=== PATIENT | female | born 1995 | race Caucasian/White ===

== ENCOUNTER 2018-01-25 12:50 | Emergency (ER) | payer SELFPAY ==
[2018-01-25 13:23] VITALS: BP 151/81
--- NOTE | 2018-01-25 14:15 | UC ---
Complaint Female HPI - HPI Summary HPI Summary: Pt presents with c/o vaginal itching and discharge X "several days". Pt self reports that she may have been over the summer, was told she miscarried at [facility] but is unsure. She self reports cognitive delay. Pt also is concerned about STDs - History Of Current Complaint Chief Complaint: UCSTDScreening Stated Complaint: PERSONAL Time Seen by Provider: 01/25/18 13:32 Hx Obtained From: Patient Hx Last Menstrual Period: IRREGULAR- JUST CAME OF DEPO ?: No Onset/Duration: Sudden Onset Severity Initially: Mild Severity Currently: Moderate Pain Intensity: 7 Character: Burning Aggravating Factor(s): Nothing Alleviating Factor(s): Nothing Associated Signs And Symptoms: Positive: Vaginal Discharge - Risk Factors Ectopic Risk Factor: Negative Ovarian Torsion Risk Factor: Reproductive Age - Allergies/Home Medications Allergies/Adverse Reactions: Allergies Allergy/AdvReac Type Severity Reaction Status Date / Time No Known Allergies Allergy Verified 01/25/18 13:21 Home Medications: Home Medications Amitriptyline HCl 25 mg PO DAILY 01/25/18 [History Confirmed 01/25/18] Metformin HCl [Metformin HCl ER (Osmotic] 500 mg PO BID 01/25/18 [History Confirmed 01/25/18] OLANZapine [Zyprexa] 10 mg PO BID 01/25/18 [History Confirmed 01/25/18] Sertraline HCl [Zoloft] 25 mg PO DAILY 01/25/18 [History Confirmed 01/25/18] lamoTRIgine [Lamictal] 50 mg PO DAILY 01/25/18 [History Confirmed 01/25/18] PMH/Surg Hx/FS Hx/Imm Hx Previously Healthy: Yes - Surgical History Surgical History: Yes Surgery Procedure, Year, and Place: PILONIDAL CYST. INCISION AND DRAINEGE RIGHT ARM. APPENDECTOMY - Family History Known Family History: Positive: Cardiac Disease - Social History Occupation: Works From/At Home Lives: With Family Alcohol Use: None Substance Use Type: None Smoking Status (MU): Never Smoked Tobacco Have You Smoked in the Last Year: No Review of Systems Constitutional: Negative Skin: Negative Eyes: Negative ENT: Negative Respiratory: Negative Cardiovascular: Negative Gastrointestinal: Negative Genitourinary: Vaginal/Penile Itching Motor: Negative Neurovascular: Negative Musculoskeletal: Negative Neurological: Negative Psychological: Negative Is Patient Immunocompromised?: No All Other Systems Reviewed And Are Negative: Yes Physical Exam Triage Information Reviewed: Yes Appearance: Well-Appearing, Obese Vital Signs: Initial Vital Signs Temp 97.3 F 01/25/18 13:15 Pulse 82 01/25/18 13:15 Resp 16 01/25/18 13:15 BP 151/81 01/25/18 13:15 Pulse Ox 100 01/25/18 13:15 Vital Signs Reviewed: Yes Eye Exam: Normal ENT Exam: Normal Dental Exam: Normal Neck exam: Normal Respiratory: Positive: No respiratory distress Abdomen Description: Positive: Nontender Pelvic Exam: Positive: External Exam Normal, No Masses Musculoskeletal Exam: Normal Neurological Exam: Normal Psychological Exam: Normal Skin Exam: Normal Complaint Female Dx - Differential Dx/Diagnosis Differential Diagnosis/HQI/PQRI: Cervicitis, Sexually Transmitted Disease, Urinary Tract Infection Provider Diagnoses: vaginitis Discharge - Sign-Out/Discharge Documenting (check all that apply): Patient Departure All imaging exams completed and their final reports reviewed: No Studies - Discharge Plan Condition: Stable Disposition: HOME Patient Education Materials: Vaginitis (ED) Referrals: [facility] [Outside] - 1 Day Brenda Whiteside NP [Primary Care Provider] - - Billing Disposition and Condition Condition: STABLE Disposition: Home
== END 2018-01-25 14:27 | disposition home or self-care (01) ==
LOC: UCCORT 12:50
DX: N76.0 Acute vaginitis (principal)
CPT/HCPCS: 81003; 84702; 87480; 87491; 87510; 87591; 87661; 99212; G0463

== ENCOUNTER 2018-04-20 16:06 | Emergency (ER) | payer BC, OTHER ==
[2018-04-20 16:24] VITALS: BP 113/71
--- NOTE | 2018-04-20 17:13 | UC ---
Abdominal Pain Female HPI - HPI Summary HPI Summary: 22-year-old woman comes to clinic today with a chief complaint of right upper quadrant and epigastric abdominal pain. This started this morning. Patient reports that she feels hungry but when she drinks water she got nauseous. The worst pain is 9-10 out of 10. Pains in the epigastrium and radiates around the right upper abdomen to the right flank. Denies any fevers. She had diarrhea last night. Normal bowel movement today. No vomiting today. Pain is also worse with twisting turning. No rash. Patient's had her appendix out but still has her gallbladder. Describes the pain is sharp. Patient reports she went to the emergency department today and waited 4 hours in the waiting room and then came here. - History of Current Complaint Chief Complaint: UCAbdominalPain Stated Complaint: ABDOMINAL PAIN GOING INTO RIGHT SIDE Time Seen by Provider: 04/20/18 16:49 Hx Last Menstrual Period: 04/10/18 Pain Intensity: 9 Allergies/Adverse Reactions: Allergies Allergy/AdvReac Type Severity Reaction Status Date / Time No Known Allergies Allergy Verified 04/20/18 16:18 Home Medications: Home Medications Levothyroxine TAB* [Synthroid 25 MCG TAB*] 1 tab DAILY 04/20/18 [History Confirmed 04/20/18] Loratadine 1 tab DAILY 04/20/18 [History Confirmed 04/20/18] PMH/Surg Hx/FS Hx/Imm Hx Previously Healthy: Yes Endocrine History: Diabetes, Hypothyroidism - Surgical History Surgical History: Yes Surgery Procedure, Year, and Place: PILONIDAL CYST. INCISION AND DRAINEGE RIGHT ARM. APPENDECTOMY - Family History Known Family History: Positive: Cardiac Disease - Social History Alcohol Use: None Substance Use Type: None Smoking Status (MU): Never Smoked Tobacco Have You Smoked in the Last Year: No Review of Systems All Other Systems Reviewed And Are Negative: Yes Constitutional: Positive: Negative Skin: Positive: Negative Eyes: Positive: Negative ENT: Positive: Negative Respiratory: Positive: Negative Cardiovascular: Positive: Negative Gastrointestinal: Positive: Abdominal Pain, Diarrhea, Nausea Genitourinary: Positive: Negative. Negative: Dysuria, Hematuria, Frequency, Urgency Motor: Positive: Negative Neurovascular: Positive: Negative Musculoskeletal: Positive: Negative Neurological: Positive: Negative Psychological: Positive: Negative Is Patient Immunocompromised?: No Physical Exam Triage Information Reviewed: Yes Appearance: Well-Appearing, Well-Nourished, Pain Distress - MILD Vital Signs: Initial Vital Signs Temp 97.7 F 04/20/18 16:19 Pulse 90 04/20/18 16:19 Resp 18 04/20/18 16:19 BP 113/71 04/20/18 16:19 Pulse Ox 99 04/20/18 16:19 Vital Signs Reviewed: Yes Eye Exam: Normal Eyes: Positive: Conjunctiva Clear ENT: Positive: Other - OROPHARYNX MOIST Neck exam: Normal Neck: Positive: Supple Respiratory: Positive: Lungs clear, Normal breath sounds, No respiratory distress Cardiovascular: Positive: RRR Abdomen Description: Positive: Other: - TENDER EPIGASTRIUM AND RUQ. Negative: CVA Tenderness (R), CVA Tenderness (L) Bowel Sounds: Positive: Present Musculoskeletal Exam: Normal Musculoskeletal: Positive: Strength Intact, ROM Intact Neurological Exam: Normal Neurological: Positive: Alert, Muscle Tone Normal Psychological Exam: Normal Psychological: Positive: Age Appropriate Behavior Skin Exam: Normal Abd Pain Female Course/Dx - Course Course Of Treatment: Due to the right upper quadrant abdominal pain and epigastric pain I recommended the patient go directly to the emergency department for further evaluation. At this time in clinic we do not have ultrasound available. Also do to the abdominal pain the patient requires real- time labs. - Differential Dx/Diagnosis Provider Diagnosis: Epigastric abdominal pain, RUQ abdominal pain Discharge - Sign-Out/Discharge Documenting (check all that apply): Patient Departure All imaging exams completed and their final reports reviewed: No Studies - Discharge Plan Condition: Stable Disposition: HOME-RECOMMEND TO ED Patient Education Materials: Acute Abdominal Pain (ED), Epigastric Pain (ED) Referrals: Brenda Whiteside NP [Primary Care Provider] - Additional Instructions: GO DIRECTLY TO THE EMERGENCY DEPARTMENT FOR FURTHER EVALUATION OF YOUR ABDOMINAL PAIN. - Billing Disposition and Condition Condition: STABLE Disposition: Home-Recommend to ED
== END 2018-04-20 17:21 | disposition home health service (06) ==
LOC: UCCORT 16:06
DX: R10.11 Right upper quadrant pain (principal); R10.13 Epigastric pain; R11.0 Nausea; R19.7 Diarrhea, unspecified; E03.9 Hypothyroidism, unspecified; E11.9 Type 2 diabetes mellitus without complications; Z79.899 Other long term (current) drug therapy
CPT/HCPCS: 81003; 84702; 99212; G0463